=== PATIENT | male | born 1950 | race Caucasian/White ===

== ENCOUNTER 2019-12-29 17:20 | Inpatient (IN) | payer MEDICARE, OTHER, SELFPAY ==
[2019-12-29] VITALS (9 sets, daily range): BP systolic 102–147; BP diastolic 53–89; PULSE 98–142; RESP 17–22; TEMP 37.3–38.5; O2SAT 96–100
--- NOTE | ~2019-12-29 | CT_ITS ---
EXAMINATION: CTA chest abdomen pelvis DATE: 12/29/2019 18:59 INDICATION: Shortness of breath. Left abdominal pain. TECHNIQUE: Computed tomography (CT) of the abdomen and pelvis was performed with 100 cc Omnipaque 350 intravenous contrast. The dose-length product was 539.93 mGy-cm. Automated exposure control and iter ative reconstruction technique were employed. COMPARISON: None. FINDINGS: There is a 8.1 cm infrarenal abdominal aortic aneurysm with a large amount of circumferenti al mural thrombus. There is occlusion of the right common iliac and external iliac artery with recons titution in the femoral region. No focal airspace consolidation. No pneumothorax. No endobronchial lesions. No suspicious pulmonary n odules or masses. No evidence for thoracic aortic aneurysm or dissection. No thoracic lymphadenopathy . There is moderate bilateral perinephric stranding/fluid. Fatty infiltration of the liver. The spleen, pancreas, adrenal glands are unremarkable. Gallbladder is present. Bladder wall is thickened, possib ly outlet obstruction secondary to enlarged prostate gland. No acute osseous abnormality. IMPRESSION: 1. Infrarenal abdominal aortic aneurysm measuring 8.1 cm with occlusion of the right common and exter nal iliac arteries with reconstitution in the femoral region. 2: Moderate bilateral perinephric stranding with fluid, nonspecific. Cannot exclude pyelonephritis. N o significant hydronephrosis. 3: Diffuse bladder wall thickening, most likely hypertrophy secondary to outlet obstruction. Cystitis less favored. Reviewed, dictated and finalized at location A. IMPRESSION: 1. Infrarenal abdominal aortic aneurysm measuring 8.1 cm with occlusion of the right common and external iliac arteries with reconstitution in the femoral reg ion. 2: Moderate bilateral perinephric stranding with fluid, nonspecific. Cannot exc lude pyelonephritis. No significant hydronephrosis. 3: Diffuse bladder wall thickening, most likely hypertrophy secondary to outlet obstruction. Cystitis less favored.
--- NOTE | ~2019-12-29 | XR_ITS ---
EXAMINATION: XR chest 1V portable 12/29/2019 18:27 INDICATION: Shortness of breath. Left abdominal pain. PROCEDURE: AP portable chest COMPARISON: No prior studies for comparison. FINDINGS: The lungs are clear. The cardiomediastinal silhouette is within normal limits. There are no pleural effusions. There is no pneumothorax suspected. IMPRESSION: 1: NO ACUTE CARDIOPULMONARY DISEASE. Reviewed, dictated and finalized at location A.
--- NOTE | 2019-12-29 17:39 | ECG_ITS ---
Measurements Intervals [place] Rate: 138 P: 62 MO: 142 QRS: 43 QRSD: 72 T: 64 QT: 258 QTc: 392 Interpretive Statements SINUS TACHYCARDIA BASELINE ARTIFACT- I, III, AVL, V4 ABNORMAL ECG Electronically Signed On 12-30-2019 8:00:11 CDT by Hernesto Mcgee D.O.
--- NOTE | 2019-12-29 17:51 | ED.FEVER ---
HPI - Fever General Chief Complaint: Fever <Jud Joshi MD - Last Filed: 12/29/19 21:35> Stated Complaint: Fever <Jud Joshi MD - Last Filed: 12/29/19 21:35> Time Seen by Provider: 12/29/19 17:39 <Jud Joshi MD - Last Filed: 12/29/19 21:35> Source: patient <Jud Joshi MD - Last Filed: 12/29/19 21:35> Mode of arrival: EMS <Jud Joshi MD - Last Filed: 12/29/19 21:35> Limitations: no limitations <Jud Joshi MD - Last Filed: 12/29/19 21:35> History of Present Illness HPI Narrative: This patient is a 69 year old male who presents for evaluation of fever. Patient states he has not felt well in the past 2 days. He reports mild cough with shortness of breath with exertion. He is concerned that he may have kidney infection, because he has felt similar to this in past. <Jud Joshi MD - Last Filed: 12/29/19 21:35> MD elicited complaint: fever <Jud Joshi MD - Last Filed: 12/29/19 21:35> Onset (ago): day(s) (2) <Jud Joshi MD - Last Filed: 12/29/19 21:35> Context: recent travel (2 weeks ao) <Jud Joshi MD - Last Filed: 12/29/19 21:35> Associated symptoms: cough, night sweats and back/flank pain <Jdu Joshi MD - Last Filed: 12/29/19 21:35> Related Data Allergies/Adverse Reactions: Allergies Allergy/AdvReac Type Severity Reaction Status Date / Time No Known Allergies Allergy Unverified 01/13/12 15:47 <Jud Joshi MD - Last Filed: 12/29/19 21:35> Review of Systems Review of Systems: All systems reviewed & are unremarkable except as noted in HPI and below <Jud Joshi MD - Last Filed: 12/29/19 21:35> Constitutional: Constitutional: Reports fever(s) <Jud Joshi MD - Last Filed: 12/29/19 21:35> Cardiovascular: Cardiovascular: Denies chest pain <Jud Joshi MD - Last Filed: 12/29/19 21:35> Respiratory: Respiratory: Reports cough, Reports dyspnea and Denies wheezing <Jud Joshi MD - Last Filed: 12/29/19 21:35> Gastrointestinal: Gastrointestinal: Denies abdominal pain, Denies nausea and Denies vomiting <Jud Joshi MD - Last Filed: 12/29/19 21:35> Genitourinary: Genitourinary: Reports dysuria <Jud Joshi MD - Last Filed: 12/29/19 21:35> Musculoskeletal: Musculoskeletal: Reports back pain (low back pain) and Reports muscle cramps (right calf pain) <Jud Joshi MD - Last Filed: 12/29/19 21:35> [facility] Past Medical History Medical History: Medical History (Updated 12/29/19 @ 20:56 by Jud Joshi MD) Diabetes mellitus Hyperlipidemia <Jud Joshi MD - Last Filed: 12/29/19 21:35> Surgical History Surgical History: Surgical History (Updated 12/29/19 @ 17:53 by Jud Joshi MD) H/O shoulder surgery <Jud Joshi MD - Last Filed: 12/29/19 21:35> Social History Social History: Social History Gender identity (if verbalized by the patient): Male <Jud Joshi MD - Last Filed: 12/29/19 21:35> Exam Const: General: no acute distress and alert <Jud Joshi MD - Last Filed: 12/29/19 21:35> Orientation/consciousness: patient oriented x3 <Jud Joshi MD - Last Filed: 12/29/19 21:35> HENMT: Head: normocephalic and atraumatic <Jud Joshi MD - Last Filed: 12/29/19 21:35> Face and sinus: face symmetric <Jud Joshi MD - Last Filed: 07/11/20 21:35> Mouth: Yes lip normal and Yes moist mucous membranes <Jud Joshi MD - Last Filed: 12/29/19 21:35> Throat: uvula midline <Jud Joshi MD - Last Filed: 12/29/19 21:35> Eyes: Pupils: Equal, round and reactive pupils present <Jud Joshi MD - Last Filed: 12/29/19 21:35> EOM: EOMs intact bilaterally <Jud Joshi MD - Last Filed: 12/29/19 21:35> Chest: Chest palpation & inspection: normal inspection of the chest <Jud Joshi MD - Last Filed: 12/29/19 21:35> Resp:
[2019-12-29 17:56] LABS: Basophils Absolute Auto 0.1 K/mm3 (0.0-0.1); Basophils Percent Auto 0.3 % (0.2-1.2); Eosinophils Percent Auto 0.1 % (0-4.4); Hematocrit 42.3 % (42.0-52.0); Hemoglobin 14.7 g/dL (14.0-18.0); Immature Granulocyte Absolute 0.15 K/mm3 (0.00-0.031); Immature Granulocyte Percent A 0.7 % (0-0.5); Lymphocytes Absolute Auto 0.76 K/mm3 (0.9-3.2); Lymphocytes Percent Auto 3.5 % (18.3-44.2); Mean Corpuscular HGB Conc 34.8 g/dl (32-36); Mean Corpuscular Hemoglobin 31.2 pg (26-34); Mean Corpuscular Volume 89.8 fl (80-100); Mean Platelet Volume 11.1 fl (7.4-10.4); Monocytes Absolute Auto 1.4 K/mm3 (0.1-0.6); Monocytes Percent Auto 6.5 % (2.6-8.5); Neutrophils Absolute Auto 19.2 K/mm3 (1.3-6.7); Neutrophils Percent Auto 88.9 % (45.5-73.1); Platelet Count Result 207 k/mm3 (150-375); Red Blood Count 4.71 M/mm3 (4.6-6.20); Red Cell Distribution Width 12.5 % (11.5-14.5); White Blood Count 21.6 K/mm3 (4.5-10.0)
[2019-12-29 18:00] LABS: Add Urine Microscopic? YES; Appearance Urine Clear (Clear); Bacteria Urine Trace /hpf; Bilirubin Urine Negative (Negative); Blood Urine 2+ (Negative); Color Urine Yellow (Yellow); Glucose Urine UA Negative (Negative); Ketones Urine 1+ mg/dL (Negative); Leukocyte Esterase Ur 3+ LEU/UL (Negative); Mucus Urine Rare /lpf; Nitrate Urine Positive (Negative); Protein Urine 2+ mg/dL (Negative); RBC Urine 21-50 /hpf (0-2); Specific Grav Ur 1.017 (1.001-1.035); Squamous Epithelial Cell Urine Rare /hpf (Few); Urobilinogen Urine Negative mg/dL (<2.0); WBC Urine >75 /hpf
[2019-12-29 18:06] LABS: Prothrombin Time 13.2 Seconds (11.1-14.7)
[2019-12-29 18:07] LABS: Partial Thromboplastin Time 28.7 SECONDS (22.3-36.8)
[2019-12-29 18:08] LABS: Lactic Acid Reflex 1.5 mmol/L (0.7-2.1)
[2019-12-29 18:11] LABS: Alanine Aminotransferase 14 U/L (4-50); Albumin Level 4.3 g/dL (3.5-5.1); Alkaline Phosphatase 103 U/L (38-126); Aspartate Amino Transferase 23 U/L (17-59); Bilirubin,Total 0.7 mg/dL (0.2-1.3); Blood Urea Nitrogen 43 mg/dL (9-20); Calcium 9.9 mg/dL (8.4-10.2); Carbon Dioxide 19 mmol/L (22-30); Chloride 99 mmol/L (98-107); Estimated CRCL calculation 43 ml/min; Estimated Glomerular Filt Rate 55; Glucose 191 mg/dL (75-110); Potassium 5.1 mmol/L (3.4-5.0); Sodium 132 mmol/L (137-145)
[2019-12-29] MEDS: SODIUM CHLORIDE 0.9% IV 1,000 ML 150 ML IV CONT (18:11)
[2019-12-29 18:28] LABS: CRP 21.3 mg/dL (<1.0)
[2019-12-29] MEDS: SODIUM CHLORIDE 0.9% IV 1,000 ML 999 ML IV CONT (19:01)
[2019-12-29] MEDS: IBUPROFEN IV 800 MG/200 ML 800 MG/200 ML BAG 400 MG IVPB (20:45)
--- NOTE | 2019-12-29 20:47 | PC.NURSE ---
noted shivering and tremoring in room order for lolly, started med in room fever 101.2
--- NOTE | 2019-12-29 22:32 | PC.NURSE ---
info fax[facility] to [facility] awaiting response
--- NOTE | 2019-12-29 23:29 | PC.NURSE ---
Spoke with AMAURY Dinh at [facility]. Their policy is that they cannot take transferred patients until COVID-19 testing has been resulted. This patient's result will not be complete until Saturday 12/30. He will need to stay here before being transferred to [facility]. Once results have been obtained, call [facility] to complete transfer.
[2019-12-30] VITALS (16 sets, daily range): BP systolic 95–130; BP diastolic 57–89; PULSE 79–103; RESP 15–22; TEMP 36.1–36.5; O2SAT 96–100
--- NOTE | 2019-12-30 02:50 | PC.NURSE ---
edp notified of pts bp trending down. no new orders.
--- NOTE | 2019-12-30 05:23 | PC.NURSE ---
edp notified of pt bp 80's/50's. 1000 ml of ns started at 500 ml per hr at this time.
[2019-12-30] MEDS: SODIUM CHLORIDE 0.9% IV 1,000 ML 500 ML (05:24)
[2019-12-30] MEDS: SODIUM CHLORIDE 0.9% IV 1,000 ML 999 ML IV CONT (07:36)
[2019-12-30 09:41] LABS: Glucose Point of Care 127 (65-105)
--- NOTE | 2019-12-30 09:45 | ADMGEN ---
This patient, Nikko Oden, was admitted to Intensive Care Unit-3 with a bag, phone. Patient/family oriented to hospital policies and general routines including ID bracelet, bed and alarms, visiting hours, pain management, procedures, bathroom and other care routines, personal items, smoking policy, room service/diet, and visiting hours. Valuables list has been completed. Information on how to activate the Rapid Response Team has been discussed. Patient/Family are encouraged to report perceived risks to care and to ask questions if they do not understand what they are told or what they should do.
[2019-12-30] MEDS: SODIUM CHLORIDE 0.9% IV 1,000 ML 125 ML IV CONT ×2 (12:05→20:01)
--- NOTE | 2019-12-30 16:00 | PM.IMHP ---
H&P: HPI History of Present Illness Chief complaint: Fever. Narrative: Nikko Oden is a 69-year-old male type 2 diabetes mellitus, hypertension, hyperlipidemia, and history of urinary tract infection who presented to the emergency department last evening from home with complaints of a fever. He reports generalized malaise for nearly 1 weeks time with decreased appetite and dysuria. Over the past 2 days he has felt much worse, with subjective fever and several episodes of rigors. He met sepsis criteria on arrival to the emergency department and a CT scan of the abdomen and pelvis showed moderate bilateral perinephric stranding with fluid, concerning for pyelonephritis given UA findings. Incidentally an 8.1 centimeter infrarenal abdominal aortic aneurysm was noted with occlusion of the right common and external iliac arteries with reconstitution in the femoral region. Due to these findings, it was felt that he would be best served at a tertiary care facility. The ED physician did speak with a vascular surgeon at [facility] last evening who states no need for emergent surgery or transfer and that the patient should be treated for his infection 1st. Thereafter patient reported that he gets a majority of his care at the [facility] and he was accepted in transfer to the medicine service with vascular consult however he must have a negative COVID test prior to transfer. In this setting he is being admitted, pending testing before transfer. At the time my evaluation he is feeling somewhat better and no longer has dysuria. With further questioning, he has been having claudication for the last couple of months in his right leg, and he estimates he can walk about 500 feet before he has to stop and rest due to pain and discomfort. In fact, after doing some research, he was concerned that he may have peripheral arterial disease so he stopped smoking 9 days ago. He has never been screened for a abdominal aortic aneurysm, but has noticed pulsating abdomen on occasion. He and his son recently traveled to [place] and returned home on December 18. He has not had symptoms of COVID and specifically denies cough, shortness of breath, sore throat, anosmia and dysgeusia. He also denies sinus congestion, rhinorrhea, otalgia, odynophagia, nausea, vomiting, and diarrhea. He has not had lightheadedness, dizziness, or chest pain. Review of Systems Review of Systems: Narrative: Twelve systems were reviewed with pertinent positives and negatives as per HPI. No headache or neck ache. He denies rash. No mosquito or tick bites. He believes his diabetes is always been well controlled in fact last fall he was told to stop taking his metformin but he continues to take glipizide. No blurry vision, polydipsia, or polyuria. He occasionally has difficulty starting his urine stream, but thereafter he has no issues. He denies dribbling and feelings of incomplete bladder emptying. Except as documented, all other systems were reviewed and are negative. [facility] Past Medical History Medical History (Updated 12/30/19 @ 19:27 by Cheryl Gonsalves PA-C) Essential hypertension Gastroesophageal reflux disease Hyperlipidemia Kidney stones Tobacco dependence Type 2 diabetes mellitus Hemoglobin was 6.4% on 12/30/2019. 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 Family History Family History (Updated 12/30/19 @ 19:12 by Cheryl Gonsalves PA-C) Mother Colon cancer Father Congestive heart failure Coronary artery disease Abdominal aortic aneurysm Social History Social History (Updated 12/30/19 @ 19:14 by Cheryl Gonsalves PA-C) Social History: Surrogate decision maker: Isai Oden, son. Code status: Full code. Smoking packs per day: 1 Smoking cigarettes per day: 20.0 Years smoked: 50 Smoking pack-years: 50.00 Sm
[2019-12-30 16:27] LABS: Basophils Absolute Auto 0.1 K/mm3 (0.0-0.1); Basophils Percent Auto 0.4 % (0.2-1.2); Eosinophils Absolute Auto 0.1 K/mm3 (0-0.3); Eosinophils Percent Auto 0.6 % (0-4.4); Hematocrit 36.8 % (42.0-52.0); Hemoglobin 12.4 g/dL (14.0-18.0); Immature Granulocyte Absolute 0.15 K/mm3 (0.00-0.031); Immature Granulocyte Percent A 0.7 % (0-0.5); Lymphocytes Absolute Auto 1.36 K/mm3 (0.9-3.2); Lymphocytes Percent Auto 6.4 % (18.3-44.2); Mean Corpuscular HGB Conc 33.7 g/dl (32-36); Mean Corpuscular Hemoglobin 31.2 pg (26-34); Mean Corpuscular Volume 92.5 fl (80-100); Mean Platelet Volume 11.4 fl (7.4-10.4); Monocytes Absolute Auto 1.1 K/mm3 (0.1-0.6); Monocytes Percent Auto 5.4 % (2.6-8.5); Neutrophils Absolute Auto 18.4 K/mm3 (1.3-6.7); Neutrophils Percent Auto 86.5 % (45.5-73.1); Platelet Count Result 185 k/mm3 (150-375); Red Blood Count 3.98 M/mm3 (4.6-6.20); Red Cell Distribution Width 13.1 % (11.5-14.5); White Blood Count 21.3 K/mm3 (4.5-10.0)
[2019-12-30 16:41] LABS: Lactic Acid Reflex 1.1 mmol/L (0.7-2.1)
[2019-12-30 16:44] LABS: Glucose Point of Care 170 (65-105)
[2019-12-30 16:44] LABS: Alanine Aminotransferase 19 U/L (4-50); Albumin Level 3.3 g/dL (3.5-5.1); Alkaline Phosphatase 93 U/L (38-126); Aspartate Amino Transferase 50 U/L (17-59); Bilirubin,Total 0.2 mg/dL (0.2-1.3); Blood Urea Nitrogen 40 mg/dL (9-20); Calcium 8.3 mg/dL (8.4-10.2); Carbon Dioxide 22 mmol/L (22-30); Chloride 109 mmol/L (98-107); Estimated CRCL calculation 40 ml/min; Estimated Glomerular Filt Rate 50; Glucose 169 mg/dL (75-110); Potassium 4.5 mmol/L (3.4-5.0); Sodium 137 mmol/L (137-145)
[2019-12-30 16:45] LABS: Hemoglobin A1C 6.4 % (<5.7)
[2019-12-30 17:08] LABS: CRP 34.5 mg/dL (<1.0)
[2019-12-30] MEDS: SIMVASTATIN 20 MG TABLET 40 MG PO (20:02)
--- NOTE | 2019-12-30 20:45 | PC.NURSE ---
Patient refuses midnight vitals. States he does not want to be woken up.
[2019-12-30] MEDS: diphenhydrAMINE HCl CAP 25 MG CAPSULE PO (21:20)
[2019-12-30] MEDS: ACETAMINOPHEN 325 MG TABLET 650 MG PO (21:21)
[2019-12-31] VITALS (15 sets, daily range): BP systolic 123–162; BP diastolic 56–80; PULSE 70–97; RESP 18–27; TEMP 36.6–37.9; O2SAT 96–100
[2019-12-31] MEDS: SODIUM CHLORIDE 0.9% IV 1,000 ML 125 ML IV CONT ×3 (03:16→23:41)
[2019-12-31 03:35] LABS: Basophils Absolute Auto 0.1 K/mm3 (0.0-0.1); Basophils Percent Auto 0.3 % (0.2-1.2); Eosinophils Absolute Auto 0.2 K/mm3 (0-0.3); Eosinophils Percent Auto 0.9 % (0-4.4); Hematocrit 34.5 % (42.0-52.0); Hemoglobin 11.8 g/dL (14.0-18.0); Immature Granulocyte Absolute 0.15 K/mm3 (0.00-0.031); Immature Granulocyte Percent A 0.8 % (0-0.5); Lymphocytes Absolute Auto 1.25 K/mm3 (0.9-3.2); Lymphocytes Percent Auto 6.8 % (18.3-44.2); Mean Corpuscular HGB Conc 34.2 g/dl (32-36); Mean Corpuscular Hemoglobin 31.2 pg (26-34); Mean Corpuscular Volume 91.3 fl (80-100); Mean Platelet Volume 11.2 fl (7.4-10.4); Monocytes Absolute Auto 1.3 K/mm3 (0.1-0.6); Monocytes Percent Auto 6.9 % (2.6-8.5); Neutrophils Absolute Auto 15.5 K/mm3 (1.3-6.7); Neutrophils Percent Auto 84.3 % (45.5-73.1); Platelet Count Result 176 k/mm3 (150-375); Red Blood Count 3.78 M/mm3 (4.6-6.20); White Blood Count 18.4 K/mm3 (4.5-10.0)
[2019-12-31 03:45] LABS: Blood Urea Nitrogen 32 mg/dL (9-20); Carbon Dioxide 21 mmol/L (22-30); Chloride 110 mmol/L (98-107); Estimated CRCL calculation 40 ml/min; Estimated Glomerular Filt Rate 50; Glucose 133 mg/dL (75-110); Magnesium 1.9 mg/dL (1.6-2.3); Potassium 4.2 mmol/L (3.4-5.0); Sodium 137 mmol/L (137-145)
[2019-12-31 10:43] LABS: SARS-CoV-2 RNA PCR Negative
[2019-12-31 11:47] LABS: Glucose Point of Care 190 (65-105)
--- NOTE | 2019-12-31 16:35 | P.PNIM_ITS ---
Progress Note: A&P Assessment and Plan (1) Severe sepsis: Code(s): A41.9 - Sepsis, unspecified organism; R65.20 - Severe sepsis without septic shock Status: Acute Assessment and Plan: * Present on admission and supported by fever, tachycardia, tachypnea, leukocytosis, and a drop in blood pressure > 40 mmHg. * Patient with severe sepsis with septicemia. * He has received IV fluid resuscitation and his blood pressures have been stable in the low 100s. * Lactic acid level is within normal limits. (2) Pyelonephritis: Code(s): N12 - Tubulo-interstitial nephritis, not specified as acute or chronic Status: Acute Assessment and Plan: * He was initially started on ceftriaxone but due to positive blood cultures, that was broadened to piperacillin/tazobactam. * Urine and Blood cultures growing EColi * Appears to be improving clinically with fever resolving and WBC trending down * Continue Zosyn (3) Gram-negative bacteremia: Code(s): R78.81 - Bacteremia Status: Acute Assessment and Plan: * Preliminary blood cultures showing EColi * Presumably secondary to urinary tract infection. * Continue Zosyn, pending identification and sensitivities. (4) Renal insufficiency: Code(s): N28.9 - Disorder of kidney and ureter, unspecified Status: Acute Assessment and Plan: Possibly chronic renal failure. Creatinine 1.3-1.4 range and stable here despite IV fluids. Could be related to above as well. There is moderate bilateral perinephric stranding by CT scan report. Continue to monitor renal function. Consider also renal artery stenosis. (5) Electrolyte abnormality: Code(s): E87.8 - Other disorders of electrolyte and fluid balance, not elsewhere classified Status: Acute Assessment and Plan: * On admission, patient with mild hyponatremia at 132 which is improved to 137 today * On admission, patient with hyperkalemia at 5.1 that has improved to 4.2. * Mild non gap metabolic acidosis noted. Related to renal insufficiency? * Continue to monitor electrolytes. (6) Abdominal aortic aneurysm (AAA) greater than 5.5 cm in diameter in male: Code(s): I71.4 - Abdominal aortic aneurysm, without rupture Status: Acute Assessment and Plan: * Infrarenal abdominal aortic aneurysm measuring 8.[address] * Patient has no knowledge of having an AAA or PAD * As per HPI, vascular surgeon at [facility] recommends treating current infection and follow-up with them thereafter as it is a non emergent case. * Given the high risk of rupture however, will consult Cardiology (7) Type 2 diabetes mellitus: Code(s): E11.9 - Type 2 diabetes mellitus without complications Status: Acute Assessment and Plan: * A1c 6.4%. Glucose reviewed on 12/30 * Glipizide on hold. * Continue Accu-Cheks covering with sliding scale insulin; Hypoglycemic protocol available as needed. (8) Essential hypertension: Code(s): I10 - Essential (primary) hypertension Status: Acute Assessment and Plan: * Blood pressures soft at times but improved with IV fluids. * Blood pressure more stable. * Will continue to hold antihypertensives. Continue to monitor.
--- NOTE | 2019-12-31 16:35 | PM.IMPN ---
Progress Note: A&P Assessment and Plan (1) Severe sepsis: Code(s): A41.9 - Sepsis, unspecified organism; R65.20 - Severe sepsis without septic shock Status: Acute Assessment and Plan: Present on admission and supported by fever, tachycardia, tachypnea, leukocytosis, and a drop in blood pressure > 40 mmHg. Patient with severe sepsis with septicemia. He has received IV fluid resuscitation and his blood pressures have been stable in the low 100s. Lactic acid level is within normal limits. (2) Pyelonephritis: Code(s): N12 - Tubulo-interstitial nephritis, not specified as acute or chronic Status: Acute Assessment and Plan: He was initially started on ceftriaxone but due to positive blood cultures, that was broadened to piperacillin/tazobactam. Urine and Blood cultures growing EColi Appears to be improving clinically with fever resolving and WBC trending down Continue Zosyn (3) Gram-negative bacteremia: Code(s): R78.81 - Bacteremia Status: Acute Assessment and Plan: Preliminary blood cultures showing EColi Presumably secondary to urinary tract infection. Continue Zosyn, pending identification and sensitivities. (4) Renal insufficiency: Code(s): N28.9 - Disorder of kidney and ureter, unspecified Status: Acute Assessment and Plan: Possibly chronic renal failure. Creatinine 1.3-1.4 range and stable here despite IV fluids. Could be related to above as well. There is moderate bilateral perinephric stranding by CT scan report. Continue to monitor renal function. Consider also renal artery stenosis. (5) Electrolyte abnormality: Code(s): E87.8 - Other disorders of electrolyte and fluid balance, not elsewhere classified Status: Acute Assessment and Plan: On admission, patient with mild hyponatremia at 132 which is improved to 137 today On admission, patient with hyperkalemia at 5.1 that has improved to 4.2. Mild non gap metabolic acidosis noted. Related to renal insufficiency? Continue to monitor electrolytes. (6) Abdominal aortic aneurysm (AAA) greater than 5.5 cm in diameter in male: Code(s): I71.4 - Abdominal aortic aneurysm, without rupture Status: Acute Assessment and Plan: Infrarenal abdominal aortic aneurysm measuring 8.[address] Patient has no knowledge of having an AAA or PAD As per HPI, vascular surgeon at [facility] recommends treating current infection and follow-up with them thereafter as it is a non emergent case. Given the high risk of rupture however, will consult Cardiology (7) Type 2 diabetes mellitus: Code(s): E11.9 - Type 2 diabetes mellitus without complications Status: Acute Assessment and Plan: A1c 6.4%. Glucose reviewed on 12/30 Glipizide on hold. Continue Accu-Cheks covering with sliding scale insulin; Hypoglycemic protocol available as needed. (8) Essential hypertension: Code(s): I10 - Essential (primary) hypertension Status: Acute Assessment and Plan: Blood pressures soft at times but improved with IV fluids. Blood pressure more stable. Will continue to hold antihypertensives. Continue to monitor. (9) Person under investigation for COVID-19: Code(s): Z20.828 - Contact with and (suspected) exposure to other viral communicable diseases Status: Acute Assessment and Plan: COVID-19 negative. Stop Isolation (10) Tobacco dependence: Code(s): F17.200 - Nicotine dependence, unspecified, uncompl
[2019-12-31 17:23] LABS: Glucose Point of Care 171 (65-105)
--- NOTE | 2019-12-31 20:00 | PC.NURSE ---
Dr. Allen notified at 1999.
[2019-12-31] MEDS: MELATONIN 5 MG TABLET PO (20:43)
[2019-12-31] MEDS: diphenhydrAMINE HCl CAP 25 MG CAPSULE PO (20:43)
--- NOTE | 2019-12-31 21:08 | PC.NURSE ---
Patient refuses midnight vital signs.
[2020-01-01] VITALS (10 sets, daily range): BP systolic 111–130; BP diastolic 70–79; PULSE 93–125; RESP 15–30; TEMP 36.7; O2SAT 94–100
[2020-01-01] MEDS: MORPHINE SULFATE 2 MG/ML INJ IV PUSH (00:04)
--- NOTE | 2020-01-01 00:10 | PC.NURSE ---
Cheryl WADE notified of muscle cramping per patient in right leg. Order for morphine given.
--- NOTE | 2020-01-01 00:20 | PC.NURSE ---
Dr Adames notified of no relief from morphine.
--- NOTE | 2020-01-01 00:30 | PC.NURSE ---
Unable to dopple pedal pulse on right leg nor posterior tibial. Only able to get femoral with doppler. Dr. Adames to see patient in ICU. Patient had been able to dopple pedal pulse prior to this.
[2020-01-01 00:53] LABS: Basophils Absolute Auto 0.1 K/mm3 (0.0-0.1); Basophils Percent Auto 0.4 % (0.2-1.2); Hematocrit 29.7 % (42.0-52.0); Hemoglobin 10.2 g/dL (14.0-18.0); Immature Granulocyte Absolute 0.27 K/mm3 (0.00-0.031); Lymphocytes Absolute Auto 1.52 K/mm3 (0.9-3.2); Lymphocytes Percent Auto 5.9 % (18.3-44.2); Mean Corpuscular HGB Conc 34.3 g/dl (32-36); Mean Corpuscular Hemoglobin 31.1 pg (26-34); Mean Corpuscular Volume 90.5 fl (80-100); Mean Platelet Volume 11.5 fl (7.4-10.4); Monocytes Absolute Auto 1.6 K/mm3 (0.1-0.6); Monocytes Percent Auto 6.3 % (2.6-8.5); Neutrophils Absolute Auto 22.4 K/mm3 (1.3-6.7); Neutrophils Percent Auto 86.4 % (45.5-73.1); Platelet Count Result 192 k/mm3 (150-375); Red Blood Count 3.28 M/mm3 (4.6-6.20); Red Cell Distribution Width 12.9 % (11.5-14.5); White Blood Count 25.9 K/mm3 (4.5-10.0)
[2020-01-01] MEDS: HEPARIN SOD/D5W 100 UNITS/ML 25,000 UNITS/250 ML BAG 12 UNITS IV CONT (00:54)
[2020-01-01] MEDS: MORPHINE SULFATE 4 MG/ML INJ IV PUSH (00:54)
--- NOTE | 2020-01-01 00:54 | PM.TDS ---
Transfer Discharge Sum: Prov Provider Date of admission: 12/31/19 09:32 Primary care physician: VASCULAR NEUROLOGIST PHYSICIAN Admitting clinician: Flavio Uribe MD DS: Admitting Diagnosis Admitting Diagnosis Admitting Diagnosis: Sepsis, unspecified organism DS: Discharge Diagnosis Discharge Diagnosis (1) Critical lower limb ischemia: Code(s): I99.8 - Other disorder of circulatory system Status: Acute Assessment and Plan: Initially on admission the patient had Doppler pulses posterior tibial and pedal. At just before midnight the patient developed severe pain of the right lower extremity. Initial CT of the chest abdomen pelvis demonstrated: 1. Infrarenal abdominal aortic aneurysm measuring 8.1 cm with occlusion of the right common and external iliac arteries with reconstitution in the femoral region. 2: Moderate bilateral perinephric stranding with fluid, nonspecific. Cannot exclude pyelonephritis. No significant hydronephrosis. 3: Diffuse bladder wall thickening, most likely hypertrophy secondary to outlet obstruction. Cystitis less favored. Given the acute change in the patient's vascular status I started the patient on a heparin drip and contacted [facility] transfer services. I spoke with from vascular surgery who recommended the patient be transferred to the ER for evaluation. I spoke with from the ER who accepted the patient in transfer. The patient's pain relief veins unrelieved despite 6 mg total of morphine. Will give 1 mg of Dilaudid IV. _ (2) Gram-negative bacteremia: Code(s): R78.81 - Bacteremia Status: Acute Assessment and Plan: Due to E coli. Antibiotics as discussed below. (3) Pyelonephritis: Code(s): N12 - Tubulo-interstitial nephritis, not specified as acute or chronic Status: Acute Assessment and Plan: With E coli bacteremia pansensitive. The patient initially received Rocephin on 12/29/2019. With a repeat dose on 12/30/2019. He was then switched to Zosyn on 12/30/2019 with an he was officially admited to our hospital around 6:00 p.m. (4) Severe sepsis: Code(s): A41.9 - Sepsis, unspecified organism; R65.20 - Severe sepsis without septic shock Status: Acute Assessment and Plan: Secondary to pyelonephritis and E coli bacteremia. (5) Renal insufficiency: Code(s): N28.9 - Disorder of kidney and ureter, unspecified Status: Acute Assessment and Plan: Possibly chronic renal failure. Creatinine 1.3-1.4 range and stable here despite IV fluids. Could be related to above as well. There is moderate bilateral perinephric stranding by CT scan report. Continue to monitor renal function. Consider also renal artery stenosis. (6) Tobacco dependence: Code(s): F17.200 - Nicotine dependence, unspecified, uncomplicated Status: Acute Assessment and Plan: Patient quit smoking 9 days ago after 50yrs of smoking At this time he feels that it patches not necessary as he has chewing gum. He was congratulated on stopping smoking. (7) Electrolyte abnormality: Code(s): E87.8 - Other disorders of electrolyte and fluid balance, not elsewhere classified Status: Acute Assessment and Plan: On admission, patient with mild hyponatremia at 132 which is improved to 137 today On admission, patient with hyperkalemia at 5.1 that has improved to 4.2. Mild non gap metabolic acidosis noted. Related to renal insufficiency? Continue to monitor electrolytes. (8) Abdominal aortic aneurysm (AAA) greater than 5.5 cm in diameter in male: Code(s): I71.4 - Abdominal aortic aneurysm, without rupture Status: Acute Assessment and Plan: Infrarenal abdominal aortic aneurysm measuring 8.[address] Patient has no knowledge of having an
[2020-01-01 01:09] LABS: INR 1.4; Prothrombin Time 16.7 Seconds (11.1-14.7)
[2020-01-01 01:10] LABS: Partial Thromboplastin Time 29.2 SECONDS (22.3-36.8)
--- NOTE | 2020-01-01 01:30 | PC.NURSE ---
Report given to Zen at [facility] ER. no further questions. Message left for patients son to call back. Patients belongings gathered, awaiting EMS.
== END 2020-01-01 02:15 | disposition short-term general hospital (02) | DRG 872 ==
LOC: ANHED 12-30 07:31 → ANHICU 12-30 07:59
PROVIDERS: Emergency Medicine Emergency Medical Services; General Practice; Physician Assistant; Admitting Provider Family Medicine; Emergency Provider Emergency Medicine; Visit Provider Internal Medicine
DX: A41.51 Sepsis due to Escherichia coli [E. coli] (principal); N10 Acute pyelonephritis; E87.1 Hypo-osmolality and hyponatremia; R65.20 Severe sepsis without septic shock; B96.20 Unspecified Escherichia coli [E. coli] as the cause of diseases classified elsewhere; Z11.59 Encounter for screening for other viral diseases; N28.9 Disorder of kidney and ureter, unspecified; I71.4 Abdominal aortic aneurysm, without rupture; I10 Essential (primary) hypertension; E78.5 Hyperlipidemia, unspecified; K21.9 Gastro-esophageal reflux disease without esophagitis; E87.5 Hyperkalemia; E11.51 Type 2 diabetes mellitus with diabetic peripheral angiopathy without gangrene; Z87.891 Personal history of nicotine dependence; Z85.828 Personal history of other malignant neoplasm of skin
CPT/HCPCS: 36415; 71045; 71275; 74174; 80048; 80053; 81001; 83036; 83605; 83735; 85025; 85610; 85730; 86140; 87040; 87077; 87086; 87088; 87186; 87635; 93005; 96361; 96365; 96367; 99291; A9270; C9803; J0131; J0696; J1170; J1644; J1741; J2270; J2543; J7030; Q9967; U0003

== ENCOUNTER 2020-02-18 21:27 | Emergency (ER) | payer MEDICARE, OTHER, SELFPAY ==
--- NOTE | ~2020-02-18 | XR_ITS ---
XR chest 2V DATE: 02/18/2020 22:31 INDICATION: Weakness. Hypertension. Diabetes. TECHNIQUE: AP and lateral views COMPARISON: 12/29/2019 portable AP chest 12/29/2019 CT chest abdomen pelvis FINDINGS: Normal heart size. Thoracic aortic calcification. No hilar or mediastinal enlargement. No pulmonary infiltrate or consolidation, pulmonary vascular congestion or pleural effusion or pneumoth orax. Degenerative spurring of the thoracic and lumbar spine. Abdominal aortic endovascular stent. IMPRESSION: No active cardiopulmonary disease Reviewed, dictated and finalized at [facility].
--- NOTE | ~2020-02-18 | CT_ITS ---
EXAMINATION: CT abdomen pelvis w con DATE: 02/18/2020 23:29 INDICATION: Lower abdominal pain TECHNIQUE: Computed tomography (CT) of the abdomen and pelvis was performed with 100 cc Omnipaque 350 intravenous contrast. Automated exposure control and iterative reconstruction technique were employe d. Exam dose: 564.43 mGy-cm total exam DLP. COMPARISON: 12/29/2019 CTA chest abdomen pelvis FINDINGS: Normal heart size. There is a small pericardial effusion. Coronary artery calcifications. The lung bases are clear of consolidation. The liver, gallbladder, bile ducts, pancreas and pancreatic duct are unremarkable. There is a small discoid area of diminished attenuation in the lateral aspect of the mid to upper spl een, not evident on 12/29/2019; different diagnosis includes a small infarct or small laceration or un usual enhancement variation. Normal morphology of the adrenal glands. There is a several millimeter nonobstructing lower pole right renal calculus. There is an 11 mm right renal cyst. There is a 3 mm lower pole right renal cyst. There were approximately 5 left renal cysts , largest measuring 11 mm. There is mild left hydroureteronephrosis. 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 Abdominal aortic and left common iliac endovascular graft. There is a large left retroperitoneal/ilio psoas mixed attenuation 6.5 x 5.2 x 14.2 cm mass with air-fluid levels, with extensive emphysema with in the excluded 8.2 x 8.0 cm abdominal aortic aneurysm sac, including extensive emphysema immediately surrounding the endovascular abdominal aortic graft. There is thickening of the anterior and posteri or pararenal and lateroconal fascia on the left. Differential diagnosis includes extensive abscess within the left retroperitoneum and involving abdom inal aortic aneurysm extruded sac and left perinephric space versus postoperative changes. 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 Stenosis is suggested at the distal femoral-femoral bypass graft. Right femoral bypass graft with possible proximal stenosis. There is fat stranding extending along the left common and external iliac vessels with fluid along th e left proximal aspect of the femoral-femoral bypass graft and left groin. Normal appendix. No bowel obstruction or intraperitoneal free air is evident. There is prostate enlargement and prominent prostate calcification. Bilateral fat-containing inguinal hernias, left larger than right. Diffuse idiopathic skeletal hyperostosis of the lower thoracic spine and mild degenerative change of the lumbar spine. IMPRESSION: Extensive left retroperitoneal mixed density and gas collection, with extensive gas exte nding into the excluded abdominal aortic sac, surrounding the aortic portion of the aortoiliac-left e ndovascular graft, with left left perinephric space fluid; differential diagnosis includes abscess ve rsus postoperative changes. Emphysematous cystitis Femoral-femoral bypass graft and right femoral bypass graft with suggestion of distal femoral-femoral bypass graft and proximal right femoral bypass graft stenoses I telephoned preliminary results including possible extensive left retroperitoneal abscess with exten wai into the abdominal aortic sac and left perinephric space as well as emphysematous cystitis to em ergency room physician Dr. Stern on 02/18/2020 at 2358 hours. Reviewed, dictated and finalized at [facility]. Reviewed, dictated and finalized at [facility]. IMPRESSION: Extensive left retroperitoneal mixed density and gas collection, w ith extensive gas extendin
[2020-02-18 21:32] VITALS: BP 156/94; PULSE 167; RESP 34; TEMP 37.1; O2SAT 88
--- NOTE | 2020-02-18 21:46 | ECG_ITS ---
Measurements Intervals [place] Rate: 139 P: 76 DC: 123 QRS: 56 QRSD: 71 T: 68 QT: 275 QTc: 418 Interpretive Statements SINUS TACHYCARDIA BASELINE ARTIFACT- I, III, AVL ABNORMAL ECG Electronically Signed On 02-19-2020 6:43:53 CDT by Hernesto Mcgee D.O.
[2020-02-18 22:07] LABS: Basophils Percent Auto 0.3 % (0.2-1.2); Eosinophils Percent Auto 0.1 % (0-4.4); Hematocrit 31.7 % (42.0-52.0); Hemoglobin 10.2 g/dL (14.0-18.0); Immature Granulocyte Absolute 0.13 K/mm3 (0.00-0.031); Immature Granulocyte Percent A 0.8 % (0-0.5); Lymphocytes Percent Auto 12.4 % (18.3-44.2); Mean Corpuscular HGB Conc 32.2 g/dl (32-36); Mean Corpuscular Hemoglobin 29.1 pg (26-34); Mean Corpuscular Volume 90.6 fl (80-100); Mean Platelet Volume 10.5 fl (7.4-10.4); Monocytes Absolute Auto 0.1 K/mm3 (0.1-0.6); Monocytes Percent Auto 0.7 % (2.6-8.5); Neutrophils Absolute Auto 13.2 K/mm3 (1.3-6.7); Neutrophils Percent Auto 85.7 % (45.5-73.1); Platelet Count Result 542 k/mm3 (150-375); Red Cell Distribution Width 14.2 % (11.5-14.5); White Blood Count 15.4 K/mm3 (4.5-10.0)
--- NOTE | 2020-02-18 22:14 | ED.GENADULT ---
HPI - General Adult General Chief complaint: Back Pain/Injury Stated complaint: back pain Time Seen by Provider: 02/18/20 21:34 History of Present Illness HPI narrative: Patient is a 69-year-old male who presents ER with left-sided low back pain. Reports is a chronic issue that worsened 2 days ago. Located in the left SI region. No known trauma. Patient was admitted about a month ago for urosepsis as well as having an ischemic limb and very large AAA. Patient not having the AAA repaired. He is on aspirin. He got out of rehab 1 month ago and since being home is lost approximately 25 pounds because he has no appetite. Patient denies any urinary frequency/urgency/dysuria. He has no abdominal/chest pain. Patient has rigors. Related Data Home Medications Medication Instructions Recorded Confirmed glipizide 10 mg PO BID 12/30/19 12/30/19 lisinopril 20 mg PO DAILY 12/30/19 12/30/19 metformin 1,000 mg PO BID 12/30/19 12/30/19 aspirin 81 mg PO DAILY 02/18/20 Allergies Allergy/AdvReac Type Severity Reaction Status Date / Time No Known Allergies Allergy Verified 02/18/20 21:44 Review of Systems Review of Systems: All systems reviewed & are unremarkable except as noted in HPI and below Constitutional: Constitutional: Reports chills, Denies fever(s) and Reports weakness ENT: Denies nasal congestion and Denies sore throat Cardiovascular: Cardiovascular: Denies chest pain Respiratory: Respiratory: Denies cough and Denies dyspnea Gastrointestinal: Gastrointestinal: Denies abdominal pain, Denies diarrhea, Denies nausea and Denies vomiting Genitourinary: Genitourinary: Denies oliguria, Denies dysuria and Denies urinary frequency Musculoskeletal: Musculoskeletal: Reports back pain, Denies joint swelling and Denies muscle cramps [facility] Past Medical History Medical History (Updated 02/19/20 @ 06:20 by Juan Stern MD) Essential hypertension Gastroesophageal reflux disease Hyperlipidemia Kidney stones Tobacco dependence Type 2 diabetes mellitus Hemoglobin was 6.4% on 12/30/2019. Urinary tract infection Surgical History Surgical History (Updated 02/18/20 @ 22:18 by Juan Stern MD) S/P AAA repair Status post surgical removal of malignant neoplasm of skin From the right anterior shoulder. Family History Family History (Updated 12/30/19 @ 19:12 by Cheryl Gonsalves PA-C) Mother Colon cancer Father Congestive heart failure Coronary artery disease Abdominal aortic aneurysm Social History Social History (Updated 12/30/19 @ 19:14 by Cheryl Gonsalves PA-C) Social History: Surrogate decision maker: Isai Oden, cedrick. Code status: Full code. Smoking packs per day: 1 Smoking cigarettes per day: 20.0 Years smoked: 50 Smoking pack-years: 50.00 Smoking status: Former smoker Tobacco type: cigarettes Smoking end date: 12/22/19 Alcohol intake: never Substance use: never Additional living arrangements comments: Patient lives in his own home in [place]. He has a son and daughter who live locally. Additional occupation/education comments: He was drafted into the [employer] and was in [place] for 9 months in the early 1970s. 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 Gender identity (if verbalized by the patient): Male Spiritual care concerns: No Exam Narrative: Exam Narrative: GENERAL: Ill-appearing, well-nourished, and in moderate distress. HEAD: Normocephalic, atraumatic. ENT: Dry mucous membranes CHEST: Clear to auscultation. No respiratory distress. HEART: Tachycardic and regular normal peripheral pulses. ABDOMEN: Soft, mild BLQ tenderness w/o guarding, nondistended. BACK: No midline tenderness thoracic or lumbar spine. There is mild SI tenderness bilaterally. EXTREMITIES: Normal range of motion. No edema. SKIN: Warm, dry, no rash. Neuro: No acute deficit, A&Ox3. Psych: Anxious, normal thought content.
[2020-02-18] MEDS: ONDANSETRON INJ 4 MG/2 ML VIAL IV PUSH (22:15)
[2020-02-18 22:22] LABS: Lactic Acid Reflex 11.4 mmol/L (0.7-2.1)
[2020-02-18 22:24] LABS: Albumin Level 3.5 g/dL (3.5-5.1); Alkaline Phosphatase 211 U/L (38-126); Anion Gap 20 mmol/L (8-16); Aspartate Amino Transferase 40 U/L (17-59); Bilirubin,Total 0.5 mg/dL (0.2-1.3); Blood Urea Nitrogen 46 mg/dL (9-20); Calcium 9.5 mg/dL (8.4-10.2); Carbon Dioxide 17 mmol/L (22-30); Chloride 97 mmol/L (98-107); Estimated CRCL calculation 55 ml/min; Estimated Glomerular Filt Rate > 60; Glucose 289 mg/dL (75-110); Potassium 5.1 mmol/L (3.4-5.0); Sodium 134 mmol/L (137-145)
[2020-02-18 22:25] LABS: INR 1.2; Prothrombin Time 14.7 Seconds (11.1-14.7)
[2020-02-18 22:26] VITALS: PULSE 134; RESP 24; O2SAT 100
[2020-02-18 22:27] LABS: Alanine Aminotransferase 58 U/L (4-50)
[2020-02-18 22:35] LABS: CRP 24.1 mg/dL (<1.0)
[2020-02-18 22:44] LABS: Add Urine Microscopic? YES; Appearance Urine Cloudy (Clear); Bilirubin Urine Negative (Negative); Blood Urine 1+ (Negative); Color Urine Yellow (Yellow); Glucose Urine UA 1+ mg/dL (Negative); Ketones Urine Negative (Negative); Leukocyte Esterase Ur 2+ LEU/UL (Negative); Nitrate Urine Negative (Negative); Protein Urine 1+ mg/dL (Negative); Specific Grav Ur 1.013 (1.001-1.035); Urobilinogen Urine Negative mg/dL (<2.0)
[2020-02-19 01:05] LABS: Reflex Lactic Acid Yes or No Add Lactic
[2020-02-19 01:10] VITALS: PULSE 107; RESP 18; O2SAT 98
== END 2020-02-19 01:12 | disposition short-term general hospital (02) ==
LOC: ANHED 22:00
PROVIDERS: Emergency Provider Emergency Medicine
DX: T81.44XA Sepsis following a procedure, initial encounter (principal); N30.80 Other cystitis without hematuria; I10 Essential (primary) hypertension; K21.9 Gastro-esophageal reflux disease without esophagitis; E78.5 Hyperlipidemia, unspecified; Z87.442 Personal history of urinary calculi; Z87.440 Personal history of urinary (tract) infections; Z85.828 Personal history of other malignant neoplasm of skin; Z87.891 Personal history of nicotine dependence; E11.9 Type 2 diabetes mellitus without complications; Z79.82 Long term (current) use of aspirin; Z79.84 Long term (current) use of oral hypoglycemic drugs; R00.0 Tachycardia, unspecified
CPT/HCPCS: 36415; 71046; 74177; 80053; 81001; 83605; 85025; 85610; 85730; 86140; 87040; 87077; 87186; 93005; 96361; 96365; 96367; 96375; 99285; J0131; J2405; J2543; J7030; Q9967